=== PATIENT | female | born 1935 | race Caucasian/White ===

== ENCOUNTER 2016-09-27 07:22 | Observation (INO) | payer OTHER ==
[~2016-09-27] VITALS: Ht 160 cm; Wt 62.9 kg
[2016-09-27] VITALS (9 sets, daily range): BP systolic 129–218; BP diastolic 60–105; PULSE 72–108; RESP 16–20; TEMP 97.5–98.1; O2SAT 90–99
--- NOTE | 2016-09-27 07:42 | PD ---
HPI Chief Complaint: Chest Pain Time Seen by Provider: 07:40 Travel History International Travel<30 days: No Contact w/Intl Traveler<30days: No Traveled to known affect area: No History of Present Illness HPI pcp is jaqui knapp. patient complaints of ongoing chest pain/left shoulder blade pain for last 5 days or so, states some radiation to left shoulder area. denies cough/fever/sputum/n/v/d/abd pain PFSH Past Medical History Cardiovascular Problems: Yes (HTN) Social History Tobacco Use: No Allergies-Medications (Allergen,Severity, Reaction): Coded Allergies: No Known Allergies (Unverified , 09/27/16) Reported Meds & Prescriptions Reported Meds & Active Scripts Active Lisinopril 20 Mg Tab 40 Mg PO DAILY Reported Meclizine (Meclizine HCl) 25 Mg Tab 25 Mg PO Toviaz ER (Fesoterodine Fumarate) 4 mg Yessy 4 Mg PO DAILY Aspirin 81 (Aspirin) 81 Mg Tabdr 81 Mg PO DAILY Os-Raymond Calcium + D3 (Calcium Carbonate-Cholecalciferol) 500-200 Mg-Unit Tab 1 Tab PO DAILY Lovastatin 20 Mg Tab 40 Mg PO DAILY Review of Systems Except as stated in HPI: all other systems reviewed are Neg Cardiovascular: Positive: Chest Pain or Discomfort Physical Exam Narrative GENERAL: SKIN: Warm and dry...theres an erythematous papular lesions not quite vesicular yet but suspect zoster over anterior t4 region and posteriorly as well over superior aspect of her scapula. HEAD: Atraumatic. Normocephalic. EYES: Pupils equal and round. No scleral icterus. No injection or drainage. ENT: No nasal bleeding or discharge. Mucous membranes pink and moist. NECK: Trachea midline. No JVD. CARDIOVASCULAR: Regular rate and rhythm. 1+ pedal edema to ble RESPIRATORY: No accessory muscle use. Clear to auscultation. Breath sounds equal bilaterally. GASTROINTESTINAL: Abdomen soft, non-tender, nondistended. Hepatic and splenic margins not palpable. MUSCULOSKELETAL: Extremities without clubbing, cyanosis, or edema. No obvious deformities. NEUROLOGICAL: Awake and alert. No obvious cranial nerve deficits. Motor grossly within normal limits. Five out of 5 muscle strength in the arms and legs. Normal speech. PSYCHIATRIC: Appropriate mood and affect; insight and judgment normal. Data Data Last Documented VS Vital Signs Date Time Temp Pulse Resp B/P Pulse Ox O2 Delivery O2 Flow Rate FiO2 09/27/16 10:12 74 16 159/77 95 Room Air 09/27/16 07:23 98.0 Orders Electrocardiogram (09/27/16 07:42) Ckmb (Isoenzyme) Profile (09/27/16 07:42) Complete Blood Count With Diff (09/27/16 07:42) Comprehensive Metabolic Panel (09/27/16 07:42) Magnesium (Mg) (09/27/16 07:42) Prothrombin Time / Inr (Pt) (09/27/16 07:42) Act Partial Throm Time (Ptt) (09/27/16 07:42) Troponin I (09/27/16 07:42) Lipase (09/27/16 07:42) Ecg Monitoring (09/27/16 07:42) Bilateral Bp Monitoring (09/27/16 07:42) Iv Access Insert/Monitor (09/27/16 07:42) Oximetry (09/27/16 07:42) Oxygen Administration (09/27/16 07:42) Morphine Inj (Morphine Inj) (09/27/16 07:45) Sodium Chloride 0.9% Flush (Ns Flush) (09/27/16 07:45) Ct Pulmonary Angiogram (09/27/16 07:42) Ondansetron Inj (Zofran Inj) (09/27/16 07:45) Aspirin Chew (Aspirin Chew) (09/27/16 09:00) Nitroglycerin 2% Oint (Nitroglycerin 2% (09/27/16 08:15) Metoprolol Tartrate Inj (Lopressor Inj) (09/27/16 08:15) Iohexol 350 Inj (Omnipaque 350 Inj) (09/27/16 09:20) Admit To Inpatient (09/27/16 ) Code Status (09/27/16 10:10) Vital Signs (Adult) Q4H (09/27/16 10:10) Activity Oob With Assistance (09/27/16 10:10) Senior Programmer / Telemetry .CONTINUOUS (09/27/16 10:10) Diet Heart Healthy (09/27/16 Lunch) Sodium Chloride 0.9% Flush (Ns Flush) (09/27/16 10:15) Sodium Chloride 0.9% Flush (Ns Flush) (09/27/16 21:00) Acetaminophen (Tylenol) (09/27/16 10:15) Ondansetron Inj (Zofran Inj) (09/27/16 10:15) Temazepam (Restoril) (09/27/16 10:15) Basic Metabolic Panel (Bmp) (09/28/16 06:00) Complete Blood Count With Diff (09/28/16 06:00) Chest, Single Ap (09/27/16 10:10) Pt Request For Service (09/27/16 10:10) Scd Bilateral/Knee High JENNIFER.BID (09/27/16 10:10) Naloxone Inj (Narcan Inj) (09/27/16 10:15) Magnesium Hydroxide Liq (Milk Of Magnesi (09/27/16 10:15) Inpatient Certification (09/27/16 ) Enalaprilat Inj (Vasotec Inj) (09/27/16 10:15) Clonidine (Catapres) (09/27/16 10:15) Hydralazine Inj (Apresoline Inj) (09/27/16 10:15) Aspirin (Aspirin) (09/28/16 09:00) Nitroglycerin Sl (Nitrostat Sl) (09/27/16 10:15) Creatine Kinase (Cpk) (09/27/16 14:00) Troponin I (09/27/16 14:00) Troponin I (09/27/16 20:00) Magnesium (Mg) (09/27/16 10:12) Lipid Profile (09/28/16 06:00) Electrocardiogram (09/27/16 14:00) Electrocardiogram (09/27/16 20:00) Echo 2d Comp With Doppler (09/27/16 ) Shoulder, Complete (>2vws) (09/27/16 ) Acetamin-Hydrocod 325-5 Mg ([place] 5-325 (09/27/16 10:30) Hydromorphone Pf Inj (Dilaudid Pf Inj) (09/27/16 10:30) Lisinopril (Prinivil) (09/27/16 10:30) Admit Order (Ed Use Only) (09/27/16 10:24) Pravastatin (Pravachol) (09/27/16 21:00) Patient Own Medication (09/28/16 09:00) Labs Laboratory Tests Test 09/27/16 08:00 White Blood Count 3.9 TH/MM3 Red Blood Count 5.22 MIL/MM3 Hemoglobin 14.6 GM/DL Hematocrit 45.1 % Mean Corpuscular Volume 86.3 FL Mean Corpuscular Hemoglobin 28.0 PG Mean Corpuscular Hemoglobin 32.4 % Concent Red Cell Distribution Width 14.6 % Platelet Count 166 TH/MM3 Mean Platelet Volume 9.1 FL Neutrophils (%) (Auto) 47.3 % Lymphocytes (%) (Auto) 39.7 % Monocytes (%) (Auto) 9.8 % Eosinophils (%) (Auto) 2.1 % Basophils (%) (Auto) 1.1 % Neutrophils # (Auto) 1.8 TH/MM3 Lymphocytes # (Auto) 1.5 TH/MM3 Monocytes # (Auto) 0.4 TH/MM3 Eosinophils # (Auto) 0.1 TH/MM3 Basophils # (Auto) 0.0 TH/MM3 CBC Comment AUTO DIFF Differential Total Cells 100 Counted Neutrophils % (Manual) 41 % Band Neutrophils % 1 % Lymphocytes % 48 % Monocytes % 5 % Eosinophils % 2 % Basophils % 3 % Neutrophils # (Manual) 1.6 TH/MM3 Differential Comment FINAL DIFF MANUAL Smudge Cells PRESENT Platelet Estimate NORMAL Platelet Morphology Comment NORMAL Red Cell Morphology Comment NORMAL Prothrombin Time 10.4 SEC Prothromb Time International 0.9 RATIO Ratio Activated Partial 23.8 SEC Thromboplast Time Sodium Level 146 MEQ/L Potassium Level 3.8 MEQ/L Chloride Level 108 MEQ/L Carbon Dioxide Level 29.5 MEQ/L Anion Gap 9 MEQ/L Blood Urea Nitrogen 18 MG/DL Creatinine 0.89 MG/DL Estimat Glomerular Filtration 61 ML/MIN Rate Random Glucose 88 MG/DL Calcium Level 9.4 MG/DL Magnesium Level 2.2 MG/DL Total Bilirubin 0.5 MG/DL Aspartate Amino Transf 30 U/L (AST/SGOT) Alanine Aminotransferase 27 U/L (ALT/SGPT) Alkaline Phosphatase 97 U/L Total Creatine Kinase 29 U/L Troponin I LESS THAN 0.02 NG/ML Total Protein 6.7 GM/DL Albumin 3.4 GM/DL Lipase 137 U/L MDM Medical Decision Making Medical Screen Exam Complete: Yes Emergency Medical Condition: Yes Medical Record Reviewed: Yes Interpretation(s) nsr 96, nl intervals, no stemi pattern, motion artifact, p pulmonale Differential Diagnosis chf/ckd/pe/aortic aneurysm/pna Narrative Course SEE ABOVE Diagnosis Primary Impression: Chest pain Qualified Code: R07.9 - Chest pain, unspecified type Additional Impression: Zoster Admitting Information Admitting Physician Requests: Observation Scripts Lisinopril 20 Mg Tab40 Mg PO DAILY #30 TAB Ref 0 Prov:Elijah Walker DO 09/27/16 Angel Dietz MD Sep 27, 2016 07:42
[2016-09-27] MEDS ORDERED: MORPHINE SULFATE 4 MG/ML INJ IV PUSH ONE (07:45)
[2016-09-27] MEDS ORDERED: SODIUM CHLORIDE 0.9% FLUSH 10 ML FLUSH IVF PRN (07:45)
[2016-09-27] MEDS ORDERED: ONDANSETRON HCL 4 MG/2 ML VIAL IV PUSH ONE (07:45)
[2016-09-27 08:10] LABS: AUTOMATED NEUTROPHIL # 1.8 TH/MM3 (1.8-7.7); BASOPHIL % 1.1 % (0.0-2.0); EOSINOPHIL # 0.1 TH/MM3 (0-0.4); EOSINOPHIL % 2.1 % (0.0-4.0); HEMATOCRIT 45.1 % (35.0-46.0); LYMPH % 39.7 % (9.0-44.0); LYMPHOCYTE # 1.5 TH/MM3 (1.0-4.8); MEAN CELL VOLUME 86.3 FL (80.0-100.0); MEAN CORPUSCULAR HGB CONC 32.4 % (32.0-36.0); MONO % 9.8 % (0.0-8.0); NEUT % 47.3 % (16.0-70.0); PLATELET COUNT 166 TH/MM3 (150-450); RED BLOOD COUNT 5.22 MIL/MM3 (4.00-5.30); RED CELL DISTRIBUTION WIDTH 14.6 % (11.6-17.2); WHITE BLOOD COUNT 3.9 TH/MM3 (4.0-11.0)
[2016-09-27 08:15] LABS: HEMO FLAGS AUTO DIFF
[2016-09-27] MEDS ORDERED: NITROGLYCERIN 2% OINT 1 GM PACKET TOP ONE (08:15)
[2016-09-27] MEDS ORDERED: METOPROLOL TARTRATE 5 MG/5 ML VIAL IV PUSH ONE (08:15)
[2016-09-27 08:18] LABS: APTT (PATIENT) 23.8 SEC (24.3-30.1); INTERNATIONAL NORMALIZED RATIO 0.9 RATIO; PROTHROMBIN TIME - PATIENT 10.4 SEC (9.8-11.6)
[2016-09-27 08:24] LABS: ALT (GPT) 27 U/L (10-53); ANION GAP 9 MEQ/L (5-15); AST (GOT) 30 U/L (15-37); BICARBONATE 29.5 MEQ/L (21.0-32.0); BLOOD UREA NITROGEN 18 MG/DL (7-18); CHLORIDE 108 MEQ/L (98-107); GLOMERULAR FILTRATION RATE 61 ML/MIN (>89); MAGNESIUM 2.2 MG/DL (1.5-2.5); POTASSIUM 3.8 MEQ/L (3.5-5.1); SODIUM (NA) 146 MEQ/L (136-145)
[2016-09-27 08:29] LABS: ALKALINE PHOSPHATASE 97 U/L (45-117); TOTAL BILIRUBIN ADULT 0.5 MG/DL (0.2-1.0)
[2016-09-27 08:34] LABS: CREATINE KINASE 29 U/L (26-192)
[2016-09-27] MEDS ORDERED: ASPIRIN 81 MG CHEW TAB CHEW SCH (09:00)
[2016-09-27] MEDS ORDERED: IOHEXOL 350 MG/ML 10 ML VIAL (for RAD DIAG) IV ONE (09:20)
--- NOTE | 2016-09-27 09:30 | RADRPT ---
EXAM DATE/TIME: 09/27/2016 09:13 [facility] COMPARISON: No previous studies available for comparison. INDICATIONS : Evaluate for embolism; chest pain. IV CONTRAST: 70 cc Omnipaque 350 (iohexol) IV RADIATION DOSE: 23.70 CTDIvol (mGy) MEDICAL HISTORY : Hypertension. SURGICAL HISTORY : None. ENCOUNTER: Initial ACUITY: 4 - 6 days PAIN SCALE: 4/10 LOCATION: Left chest TECHNIQUE: Volumetric scanning of the chest was performed using a pulmonary embolism protocol MIP images were re constructed. Using automated exposure control and adjustment of the mA and/or kV according to patien t size, radiation dose was kept as low as reasonably achievable to obtain optimal diagnostic quality images. FINDINGS: The examination is of good diagnostic quality. No pulmonary embolus is identified. The heart is normal in size. There is mild atherosclerotic plaquing in the coronary arteries. There i s no significant hilar, mediastinal or axillary adenopathy present. Examination of the pulmonary parenchyma demonstrates advanced COPD changes. No suspicious masses seen . No pleural effusion is present. There are degenerative changes within the thoracic spine. CONCLUSION: 1. Advanced COPD changes. 2. No pulmonary embolus identified. Mark Esquivel MD on September 27, 2016 at 9:27 Board Certified Radiologist. This report was verified electronically.
[2016-09-27] MEDS ORDERED: OS-CTAB3 PO (09:34)
[2016-09-27] MEDS ORDERED: TOVI4TAB PO (09:34)
[2016-09-27] MEDS ORDERED: LISI-515 PO ×2 (09:34→10:21)
[2016-09-27] MEDS ORDERED: ASPI-110 PO (09:34)
[2016-09-27] MEDS ORDERED: LOVA20TA PO (09:34)
[2016-09-27] MEDS ORDERED: MECL-62 PO (09:34)
[2016-09-27 09:53] LABS: BANDS 1 % (0-6); BASOPHILS 3 % (0-2); EOSINOPHILS 2 % (0-4); NEUTROPHIL # MANUAL DIFF 1.6 TH/MM3 (1.8-7.7); POLYS (SEG NEUTROPHILS) 41 % (16-70); WBC DIFF SAMPLE 100
[2016-09-27 09:54] LABS: PLATELET ESTIMATE SMEAR NORMAL (NORMAL); PLATELET MORPHOLOGY NORMAL (NORMAL); SCAN/DIFF FINAL DIFF MANUAL; SMUDGE CELLS PRESENT PRESENT
[2016-09-27] MEDS ORDERED: NITROGLYCERIN 0.4 MG SL 25 TABS/BTL SL PRN (10:15)
[2016-09-27] MEDS ORDERED: ENALAPRILAT 1.25 MG/ML VIAL IV PRN (10:15)
[2016-09-27] MEDS ORDERED: MAGNESIUM HYDROXIDE SUSP 30 ML CUP PO PRN (10:15)
[2016-09-27] MEDS ORDERED: SODIUM CHLORIDE 0.9% FLUSH 10 ML FLUSH IV FLUSH PRN (10:15)
[2016-09-27] MEDS ORDERED: cloNIDine HCL 0.2 MG TAB PO PRN (10:15)
[2016-09-27] MEDS ORDERED: hydrALAZINE HCL 20 MG/ML VIAL IV PUSH PRN (10:15)
[2016-09-27] MEDS ORDERED: ONDANSETRON HCL 4 MG/2 ML VIAL IVP PRN (10:15)
[2016-09-27] MEDS ORDERED: TEMAZEPAM 15 MG CAP PO PRN (10:15)
[2016-09-27] MEDS ORDERED: NALOXONE HCL 0.4 MG/ML AMP IV PRN (10:15)
[2016-09-27] MEDS ORDERED: ACETAMINOPHEN 325 MG TAB PO PRN (10:15)
--- NOTE | 2016-09-27 10:24 | HHI.HP ---
HPI Service [facility] Hospitalists Primary Care Physician Joshua Flores Admission Diagnosis Uncontrolled HTN Chief Complaint: Left shoulder pain, left sided chest pain Travel History International Travel<30 Days: No Contact w/Intl Traveler <30 Da: No Traveled to Known Affected Are: No History of Present Illness Mrs Lincoln is a pleasant 81 y/o WF with HTN, COPD, Hyperlipidemia and osteopenia who presented to the ED on 09/27/16 with complaints of left shoulder pain which began 5 days ago. She states that the pain is constant and severe and radiates onto the left side of her chest. Pt was seen by her PCP on 09/21/16 and had was felt to be having spams. She received a manipulation which seemed to help at that time. Pt was sent for a thoracic spine Xray which did not note any new compression fractures but she dis have a stable previous compression fracture at T8 noted. She has been having issues with shoulder pains for the last few months but this has acutely worsened over the last few days. She denies any associated SOB, palpitations, dizziness or weakness. She does have a noted rash on her back by her shoulder blade that does not cross the midline. Pt reports that she has had some decreased ROM due to pain in the left shoulder. In the ED the pts BP was significantly elevated with systolic BP over 200. Pt states that she has been having issues with elevated BP more recently but is unclear if this is in part pain related. Pt was given Nitro, Morphine, ASA and Metoprolol IV in the ED with some improvement in her BP to systolic BP in the high 150's. Review of Systems Constitutional: DENIES: Fever, Chills Eyes: DENIES: Eye pain Ears, nose, mouth, throat: DENIES: Hearing loss, Hoarseness Respiratory: DENIES: Shortness of breath Cardiovascular: COMPLAINS OF: Chest pain, DENIES: Palpitations, Lower Extremity Edema Gastrointestinal: DENIES: Abdominal pain, Constipation, Diarrhea, Nausea, Vomiting Genitourinary: DENIES: Hematuria, Dysuria Integumentary: COMPLAINS OF: Rash Neurologic: DENIES: Headache Psychiatric: DENIES: Confusion Past Family Social History Past Medical History Arthritis Thoracic spine compression fracture, T8 GERD HTN Hyperlipidemia Osteopenia Hx of meningioma, right posterior frontal parafalcine meningioma, stable as of 2015 per outpt records. Reported Medications Lisinopril 40 Mg PO DAILY Meclizine 25 Mg PO Toviaz ER 4 Mg PO DAILY Aspirin 81 Mg PO DAILY Os-Raymond Calcium + D3 500-200 Mg-Unit 1 Tab PO DAILY Lovastatin 40 Mg PO DAILY Allergies: Coded Allergies: No Known Allergies (Unverified , 09/27/16) Family History Father with hx PVD, CVA Mother with hx of CAD Social History Hx of tobacco use, smoked 1ppd x 40 years, quit in 1998 Denies any alcohol or illicit drug use Physical Exam Vital Signs Vital Signs Date Time Temp Pulse Resp B/P Pulse Ox O2 Delivery O2 Flow Rate FiO2 09/27/16 10:12 74 16 159/77 95 Room Air 09/27/16 08:46 18 09/27/16 08:45 72 18 199/95 95 Room Air 09/27/16 08:03 99 09/27/16 08:03 209/96 09/27/16 08:03 99 09/27/16 08:03 20 99 Room Air 09/27/16 07:23 98.0 108 20 218/105 97 Room Air Physical Exam GENERAL: This is a well-nourished, well-developed patient, in no apparent distress. HEENT: Atraumatic. Normocephalic. No temporal or scalp tenderness. No scleral icterus. Airway patent. NECK: Trachea midline, supple, nontender. CARDIO: Regular. RESP: CTA bilaterally. No wheezes, rales, or rhonchi. ABD: +BS, soft, non-tender, nondistended. EXT: Extremities without clubbing, cyanosis, or edema. SKIN: Few scattered macular/macular vesicular lesions along the left shoulder blade and anterior wall of chest, seemed to be along the same dermatome. NEURO: Awake and alert. Motor and sensory grossly within normal limits. Normal speech. Laboratory Laboratory Tests Test 09/27/16 08:00 White Blood Count 3.9 Red Blood Count 5.22 Hemoglobin 14.6 Hematocrit 45.1 Mean Corpuscular Volume 86.3 Mean Corpuscular Hemoglobin 28.0 Mean Corpuscular Hemoglobin 32.4 Concent Red Cell Distribution Width 14.6 Platelet Count 166 Mean Platelet Volume 9.1 Neutrophils (%) (Auto) 47.3 Lymphocytes (%) (Auto) 39.7 Monocytes (%) (Auto) 9.8 Eosinophils (%) (Auto) 2.1 Basophils (%) (Auto) 1.1 Neutrophils # (Auto) 1.8 Lymphocytes # (Auto) 1.5 Monocytes # (Auto) 0.4 Eosinophils # (Auto) 0.1 Basophils # (Auto) 0.0 CBC Comment AUTO DIFF Differential Total Cells 100 Counted Neutrophils % (Manual) 41 Band Neutrophils % 1 Lymphocytes % 48 Monocytes % 5 Eosinophils % 2 Basophils % 3 Neutrophils # (Manual) 1.6 Differential Comment FINAL DIFF MANUAL Smudge Cells PRESENT Platelet Estimate NORMAL Platelet Morphology Comment NORMAL Red Cell Morphology Comment NORMAL Prothrombin Time 10.4 Prothromb Time International 0.9 Ratio Activated Partial 23.8 Thromboplast Time Sodium Level 146 Potassium Level 3.8 Chloride Level 108 Carbon Dioxide Level 29.5 Anion Gap 9 Blood Urea Nitrogen 18 Creatinine 0.89 Estimat Glomerular Filtration 61 Rate Random Glucose 88 Calcium Level 9.4 Magnesium Level 2.2 Total Bilirubin 0.5 Aspartate Amino Transf 30 (AST/SGOT) Alanine Aminotransferase 27 (ALT/SGPT) Alkaline Phosphatase 97 Total Creatine Kinase 29 Troponin I LESS THAN 0.02 Total Protein 6.7 Albumin 3.4 Lipase 137 Result Diagram: 09/27/16 0800 09/27/16 [address] Angiography 09/27/16 0742 Signed Impressions: Service Date/Time: , September 27, 2016 09:13 - CONCLUSION: 1. Advanced COPD changes. 2. No pulmonary embolus identified. Mark Esquivel MD Septic Shock Reassessment Heart: Regular rate and rhythm Lungs: Clear Skin: Warm Assessment and Plan Problem List: (1) Uncontrolled hypertension Status: Acute Plan: - Pt is a 81 y/o with HTN, COPD, Hyperlipidemia and osteopenia who presented to the ED on 09/27/16 with complaints of left shoulder pain which began 5 days ago. She states that the pain is constant and severe and radiates onto the left side of her chest. - She does have a noted macular-vesicular rash on her left back by her shoulder blade and left chest which may be related to shingles. - In the ED the pts BP was found to have significantly elevated with systolic BP over 200. Pt states that she has been having issues with elevated BP more recently but is unclear if this is in part pain related as she has had shoulder pain for the last few months. - Pt was given Nitro, Morphine, ASA and Metoprolol IV in the ED with some improvement in her BP to systolic BP in the high 150's. - She normally takes Lisinopril 40mg po daily at home. - We will start Procardia XL 60mg po daily in addition to her home dose of Lisinopril - Vasotec PRN - Clonidine PRN - DVT Prophylaxis (2) Left shoulder pain Status: Acute Plan: - See above. - We will r/o ACS as a cause for the left shoulder and chest pain - Serial CE and EKG - This could also be shingles with the noted rash on the left shoulder and chest so we will start Valtrex 1,000mg TID - Pain control PRN - Left shoulder Xray (3) Chest pain Status: Acute Plan: - See Above (4) Hyperlipidemia Status: Chronic Plan: - Statin Assessment and Plan Patient examined. Assessment and plan formulated with Kathi Jauregui PA-C. I agree with the above. Problem Qualifiers (1) Chest pain: Qualified Code: R07.9 - Chest pain, unspecified type Kathi Jauregui Sep 27, 2016 10:24 Elijah Walker DO Sep 28, 2016 13:32
[2016-09-27] MEDS ORDERED: HYDROmorphone HCL PF 1 MG/ML VIAL IV PUSH PRN (10:30)
[2016-09-27] MEDS ORDERED: RESP: ALBUTEROL 2.5 MG/IPRATROPIUM 0.5 MG NEB (PRN) NEB (11:00)
--- NOTE | 2016-09-27 12:00 | RADRPT ---
EXAM DATE/TIME: 09/27/2016 10:40 [facility] COMPARISON: No previous studies available for comparison. INDICATIONS : Left shoulder pain. No known injury. MEDICAL HISTORY : None. SURGICAL HISTORY : None. ENCOUNTER: Initial ACUITY: 4 - 6 days PAIN SCORE: 9/10 LOCATION: Left posterior shoulder FINDINGS: Multiple view examination of the left shoulder demonstrates no evidence of fracture or dislocation. The glenohumeral and acromioclavicular joints are maintained. There is normal range of motion betwee n internal and external rotation. The visualized left upper ribs are intact. Bony mineralization is normal. CONCLUSION: Negative exam. Fredo Nesbitt MD on September 27, 2016 at 11:58 Board Certified Radiologist. This report was verified electronically.
[2016-09-27] MEDS ORDERED: NIFEdipine 60 MG SUSTAINED RELEASE TAB PO SCH (13:00)
--- NOTE | 2016-09-27 13:57 | EKG ---
Date Performed: 09/27/2016 Time Performed: 08:05:16 PTAGE: 81 years EKG: Sinus rhythm POSSIBLE LEFT ATRIAL ENLARGEMENT BORDERLINE ECG NO PREVIOUS TRACING DOCTOR: Christian Bradley Interpretating Date/Time 09/27/2016 13:55:45
[2016-09-27] MEDS: LISINOPRIL 20 MG TAB PO SCH (14:37)
[2016-09-27] MEDS: valACYclovir HCL 500 MG TAB PO SCH ×2 (14:37→21:28)
[2016-09-27 15:28] LABS: CREATINE KINASE 23 U/L (26-192)
[2016-09-27] MEDS: ACETAMINOPHEN/HYDROcodone 325 MG/5 MG TAB PO PRN ×2 (15:48→21:29)
--- NOTE | 2016-09-27 16:48 | ECHRPT ---
Indication: Chest pain, unspecified CONCLUSIONS Normal left ventricular size. Wall thickness is normal. The left ventricular systolic function is no rmal with an estimated ejection fraction in the range of 60-65%. Doppler parameters are consistent with impaired left ventricular relaxtion (grade 1 diastolic dysfunction). Flattening and bowing of the mitral valve without significant mitral valve prolapse. [id number] mitral valve regurgitation. BP: 159 / 77 HR: 74 Rhythm: Sinus MEASUREMENTS (Male / Female) Normal Values Technical Quality:Fair 2D ECHO LV Diastolic Diameter PLAX 3.5 cm 4.2 - 5.9 / 3.9 - 5.3 cm LV Systolic Diameter PLAX 2.5 cm IVS Diastolic Thickness 0.7 cm 0.6 - 1.0 / 0.6 - 0.9 cm LVPW Diastolic Thickness 0.7 cm 0.6 - 1.0 / 0.6 - 0.9 cm LV Relative Wall Thickness 0.4 LVOT Diameter 1.8 cm LA Systolic Diameter LX 2.2 cm 3.0 - 4.0 / 2.7 - 3.8 cm M-MODE AV Cusp Separation MM 1.9 cm DOPPLER AV Peak Velocity 88.8 cm/s AV Peak Gradient 3.2 mmHg AV Mean Gradient 2.0 mmHg AV Velocity Time Integral 20.1 cm LVOT Peak Velocity 64.6 cm/s LVOT Peak Gradient 1.7 mmHg LVOT Velocity Time Integral 12.5 cm LVOT Cardiac Index 1413.5 cm/minm AV Area Cont Eq vti 1.6 cm AV Area Cont Eq pk 1.9 cm Mitral E Point Velocity 56.7 cm/s Mitral A Point Velocity 81.8 cm/s Mitral E to A Ratio 0.7 LV E' Lateral Velocity 5.9 cm/s Mitral E to LV E' Lateral Ratio 9.7 LV E' Septal Velocity 5.2 cm/s Mitral E to LV E' Septal Ratio 11.0 TR Peak Velocity 300.0 cm/s TR Peak Gradient 36.0 mmHg PV Peak Velocity 40.6 cm/s PV Peak Gradient 0.7 mmHg FINDINGS Left Ventricle Normal left ventricular size. Wall thickness is normal. The left ventricular systolic function is no rmal with an estimated ejection fraction in the range of 60-65%. Doppler parameters are consistent with impaired left ventricular relaxtion (grade 1 diastolic dysfunction). Right Ventricle Normal right ventricular size and systolic function. Left Atrium The left atrial size is normal. Right Atrium The right atrial size is normal. Atrial Septum Normal atrial septal thickness without atrial level shunting by limited color doppler interrogation. Aorta The aortic root and proximal ascending aorta are normal in size on limited imaging. Mitral Valve Flattening and bowing of the mitral valve without significant mitral valve prolapse. [id number] mitral valve regurgitation. Aortic Valve Trileaflet aortic valve. No aortic valve stenosis or regurgitation. Tricuspid Valve Structurally normal tricuspid valve. There is mild tricuspid valve regurgitation. There is estimated mild pulmonary hypertension present (range 40-50 mmHg). Pulmonary Valve The pulmonary valve is not well visualized. Vessels The inferior vena cava is normal in size. Pericardium No pericardial effusion. Luis Angel Armstrong MD, FACC (Electronically Signed) Final Date:27 September 2016 16:47
--- NOTE | 2016-09-27 17:08 | RADRPT ---
EXAM DATE/TIME: 09/27/2016 10:35 [facility] COMPARISON: No previous studies available for comparison. INDICATIONS : Left axillary chest pain. No known injury. MEDICAL HISTORY : None. SURGICAL HISTORY : None. ENCOUNTER: Initial ACUITY: 4 - 6 days PAIN SCORE: 9/10 LOCATION: Left axillary chest FINDINGS: A single view of the chest demonstrates the lungs to be symmetrically aerated without evidence of mas s, infiltrate or effusion. No evidence of pneumothorax. The cardiomediastinal contours are unremark able. Osseous structures are intact. CONCLUSION: The lungs are clear. Fredo Nesbitt MD on September 27, 2016 at 17:06 Board Certified Radiologist. This report was verified electronically.
[2016-09-27] MEDS ORDERED: PRAVASTATIN SOD 40 MG TAB PO SCH (21:00)
[2016-09-27] MEDS: SODIUM CHLORIDE 0.9% FLUSH 10 ML FLUSH IV FLUSH SCH (21:29)
[2016-09-28] VITALS: BP 118/62; PULSE 86; RESP 16; TEMP 97.7; O2SAT 96
[2016-09-28 04:00] VITALS: BP 114/60; PULSE 85; RESP 16; TEMP 98; O2SAT 93
[2016-09-28] MEDS: ACETAMINOPHEN/HYDROcodone 325 MG/5 MG TAB PO PRN ×2 (05:13→14:30)
[2016-09-28] MEDS: valACYclovir HCL 500 MG TAB PO SCH ×2 (05:13→13:47)
[2016-09-28 08:00] VITALS: BP 106/56; PULSE 82; RESP 17; TEMP 97.9; O2SAT 93
[2016-09-28 08:02] VITALS: PULSE 59; PULSE 84
[2016-09-28] MEDS ORDERED: ASPIRIN 325 MG TAB PO SCH (09:00)
[2016-09-28] MEDS ORDERED: FESOTERODINE 4 MG PO SCH (09:00)
[2016-09-28] MEDS: LISINOPRIL 20 MG TAB PO SCH (09:00)
[2016-09-28] MEDS: SODIUM CHLORIDE 0.9% FLUSH 10 ML FLUSH IV FLUSH SCH (09:24)
[2016-09-28 09:27] LABS: AUTOMATED NEUTROPHIL # 2.8 TH/MM3 (1.8-7.7); BASOPHIL % 0.9 % (0.0-2.0); EOSINOPHIL # 0.2 TH/MM3 (0-0.4); EOSINOPHIL % 3.4 % (0.0-4.0); HEMATOCRIT 41.2 % (35.0-46.0); HEMO FLAGS DIFF FINAL; LYMPH % 25.4 % (9.0-44.0); LYMPHOCYTE # 1.2 TH/MM3 (1.0-4.8); MEAN CELL VOLUME 86.9 FL (80.0-100.0); MEAN CORPUSCULAR HEMOGLOBIN 28.5 PG (27.0-34.0); MEAN CORPUSCULAR HGB CONC 32.8 % (32.0-36.0); MONO % 8.4 % (0.0-8.0); NEUT % 61.9 % (16.0-70.0); PLATELET COUNT 154 TH/MM3 (150-450); RED BLOOD COUNT 4.74 MIL/MM3 (4.00-5.30); RED CELL DISTRIBUTION WIDTH 14.5 % (11.6-17.2); WHITE BLOOD COUNT 4.6 TH/MM3 (4.0-11.0)
[2016-09-28 10:10] LABS: BICARBONATE 26.1 MEQ/L (21.0-32.0); HDL CHOLESTEROL 50.8 MG/DL (40.0-60.0); POTASSIUM 4.3 MEQ/L (3.5-5.1)
[2016-09-28 12:00] VITALS: BP 101/55; PULSE 94; RESP 16; TEMP 97.7; O2SAT 96
[2016-09-28] MEDS ORDERED: ULTR50TA5 PO (13:29)
[2016-09-28] MEDS ORDERED: LISI-515 PO (13:29)
[2016-09-28] MEDS ORDERED: VALT500T PO (13:29)
--- NOTE | 2016-09-28 13:32 | HHI.FF ---
Face to Face Verification Diagnosis: (1) Zoster (2) Chest pain (3) Uncontrolled hypertension Home Health Nursing Order: Medical education Signs/symptoms of disease process Medication education-adverse effect Nursing assessment with vital signs Instructions: Monitor pt's blood pressure readings. I have seen patient Catherine Lincoln on 09/28/16. My clinical findings support the need for the requested home health care services because: Med compliance is questionable Limited ability to care for self Need for psychosocial assistance I certify that my clinical findings support that this patient is homebound because: Unsafe to leave home unassisted Need for psychosocial assistance Unable to use public transportation Elijah Walker DO Sep 28, 2016 13:32
--- NOTE | 2016-09-28 13:33 | HHI.DCPOC ---
Discharge Care Plan Diagnosis: (1) Zoster (2) Chest pain (3) Uncontrolled hypertension (4) Left shoulder pain Goals to Promote Your Health * To prevent worsening of your condition and complications * To maintain your health at the optimal level Directions to Meet Your Goals Take your medications as prescribed Follow your dietary instruction Follow activity as directed Keep your appointments as scheduled Take your immunizations and boosters as scheduled If your symptoms worsen call your PCP, if no PCP go to Urgent Care Center or Emergency Room Smoking is Dangerous to Your Health. Avoid second hand smoke Call the 24-hour hour crisis hotline for domestic abuse at Elijah Walker DO Sep 28, 2016 13:33
--- NOTE | 2016-09-28 13:40 | HHI.PR ---
Subjective Remarks Upon admission pt described her chest pain as continuous without SOB, n/v, or diaphoresis. Pt felt that her correlated with the development of rash at her anterior chest and back. Objective Vitals Vital Signs Date Time Temp Pulse Resp B/P Pulse Ox O2 Delivery O2 Flow Rate FiO2 09/28/16 12:00 97.7 94 16 101/55 96 09/28/16 08:02 84 09/28/16 08:00 97.9 82 17 106/56 93 09/28/16 04:00 98.0 85 16 114/60 93 09/28/16 00:00 97.7 86 16 118/62 96 09/27/16 20:03 82 09/27/16 20:00 97.7 72 18 129/60 90 09/27/16 16:00 98.1 77 20 138/70 93 09/27/16 15:00 76 09/27/16 09/27/16 09/28/16 15:00 23:00 07:00 Intake Total 240 ml Output Total 0 ml Balance 240 ml Intake Oral 240 ml Output Urine Total 0 ml # Voids 2 # Bowel Movements 0 0 Result Diagram: 09/28/1672709/28/16727 Imaging Last Impressions CT Angiography 09/27/1642 Signed Impressions: Service Date/Time: September 09:13 - CONCLUSION: 1. Advanced COPD changes. 2. No pulmonary embolus identified. Mark Esquivel MD Objective Remarks GENERAL: This is a well-nourished, well-developed patient, in no apparent distress. CARDIOVASCULAR: Regular rate and rhythm without murmurs, gallops, or rubs. RESPIRATORY: Clear to auscultation. Breath sounds equal bilaterally. No wheezes , rales, or rhonchi. GASTROINTESTINAL: Abdomen soft, non-tender, nondistended. Normal active bowel sounds MUSCULOSKELETAL: Extremities without clubbing, cyanosis, or edema. NEURO: Alert & Oriented x4 to person, place, time, situation. Moves all ext x4 Skin: pt has scattered macular and vesicular rash along a single dermatomal level at her anterior chest on the left. At the level of her upper breast & at the same level along side and back at the back there is one lesion which crosses the midline the rash does NOT cross the midline anteriorly. Rash is c/w shingles. A/P Problem List: (1) Zoster Status: Acute Plan: - pt started on valtrex 1000mg TID x 7d - will discharge on ultram 50mg q6h prn pain - f/u with PCP, Dr. Flores in 1 week (2) Chest pain Status: Acute Plan: - cardiac enzymes are negative - serial EKGs do NOT show acute ischemic changes - chest pain is most likely d/t zoster - pt declines lexiscan. (3) Uncontrolled hypertension Status: Acute Plan: - elevated BP readings upon admission - continued lisinopril, pt received one dose of Procardia XL - pt now trending hypotensive - receiving prn narcotics - pt denies dizziness - Last SBP 101 - will d/c pt to home [facility] to monitor vitals - NO lisinopril if SBP below 120 (4) Left shoulder pain Status: Acute Plan: - See above. - left shoulder x-ray (09/28/16) --> NO acute findings (5) Hyperlipidemia Status: Chronic Plan: - Statin Problem Qualifiers (1) Zoster: Qualified Code: B02.9 - Herpes zoster without complication (2) Chest pain: Qualified Code: R07.9 - Chest pain, unspecified type Elijah Walker DO Sep 28, 2016 13:40
--- NOTE | 2016-09-28 17:37 | EKG ---
Date Performed: 09/27/2016 Time Performed: 22:23:42 PTAGE: 81 years EKG: Sinus rhythm WITH PVCs ABNORMAL RHYTHM ECG PREVIOUS TRACING : 09/27/2016 08.05 Compared to the previous tracing PVCs present DOCTOR: Serafin Crisostomo Interpretating Date/Time 09/28/2016 17:35:39
== END 2016-09-28 15:40 | disposition home or self-care (01) ==
LOC: NEPC 07:22 → NEDA 10:27 → N04A 12:52
PROVIDERS: ADMIT Hospitalist; ATTEND Hospitalist
DX: R07.89 Other chest pain (principal); M25.512 Pain in left shoulder; E78.5 Hyperlipidemia, unspecified; I10 Essential (primary) hypertension; J44.9 Chronic obstructive pulmonary disease, unspecified; M85.80 Other specified disorders of bone density and structure, unspecified site; M19.90 Unspecified osteoarthritis, unspecified site; B02.9 Zoster without complications; K21.9 Gastro-esophageal reflux disease without esophagitis; Z86.011 Personal history of benign neoplasm of the brain; Z87.891 Personal history of nicotine dependence; Z79.82 Long term (current) use of aspirin
CPT/HCPCS: 71010; 71275; 73030; 80048; 80053; 80061; 82550; 83690; 83735; 84484; 85007; 85025; 85027; 85610; 85730; 93005; 93306; 96374; 96375; 97161; 99285; G0378; J2270; J2405; Q9967